=== PATIENT | male | born 1990 | race Caucasian/White ===

== ENCOUNTER 2023-01-10 10:34 | Outpatient (CLI) | payer BC, SELFPAY ==
--- NOTE | 2023-01-10 12:24 | W.ANESCHARGE ---
Anesthesia Charges Start Date/Time Anesthesia Start Date: 01/10/23 Anesthesia Start Time: 11:45 Stop Date/Time Anesthesia Stop Date: 01/10/23 Anesthesia Stop Time: 12:22
--- NOTE | 2023-01-10 12:41 | W.ANESCHARGE ---
Anesthesia Charges Start Date/Time Anesthesia Start Date: 01/10/23 Anesthesia Start Time: 11:45 Stop Date/Time Anesthesia Stop Date: 01/10/23 Anesthesia Stop Time: 12:22
== END 2023-01-10 10:35 | disposition home or self-care (01) ==
LOC: OP CLINIC 10:39
PROVIDERS: PCP Nurse Practitioner Family; Visit Provider Surgery
DX: R10.32 Left lower quadrant pain (principal)
CPT/HCPCS: 45380; 811; 88305; J2704

== ENCOUNTER 2023-09-12 09:30 | Outpatient (CLI) | payer OTHER, SELFPAY | END 2023-09-12 09:31 | disposition home or self-care (01) | LOC: NFLDREF 09-29 23:36 | PROVIDERS: PCP Family Medicine; Referring Provider Family Medicine; Visit Provider Family Medicine | DX: Z13.1 Encounter for screening for diabetes mellitus (principal); Z13.6 Encounter for screening for cardiovascular disorders | CPT/HCPCS: 80061; 82947 ==

== ENCOUNTER 2025-02-25 10:13 | Outpatient (CLI) | payer OTHER, SELFPAY ==
--- NOTE | 2025-02-25 11:44 | P.ANES_ITS ---
Anesthesia Charges Start Date/Time Anesthesia Start Date: 02/25/25 Anesthesia Start Time: 11:12 Stop Date/Time Anesthesia Stop Date: 02/25/25 Anesthesia Stop Time: 11:38 Coding CPT Codes CPT Codes: JOAN LWR INTST NDSC NOS - [id number] ([id number]) P2 - PATIENT W/MILD SYST DISEASE, QK - COUNTERINTELLIGENCE AGENT 2-4 CNCRNT ANES PROC, QX - DIRECTOR OF DIGITAL MARKETING SVC W/ MD MED DIRECTION
--- NOTE | 2025-02-25 11:44 | W.ANESCHARGE ---
Anesthesia Charges Start Date/Time Anesthesia Start Date: 02/25/25 Anesthesia Start Time: 11:12 Stop Date/Time Anesthesia Stop Date: 02/25/25 Anesthesia Stop Time: 11:38 Coding CPT Codes CPT Codes: JOAN LWR INTST NDSC NOS - [id number] ([id number]) P2 - PATIENT W/MILD SYST DISEASE, QK - TROLLEY OPERATOR 2-4 CNCRNT ANES PROC, QX - CORING MACHINE OPERATOR SVC W/ MD MED DIRECTION
--- NOTE | 2025-02-25 12:06 | P.ANES_ITS ---
Anesthesia Charges Start Date/Time Anesthesia Start Date: 02/25/25 Anesthesia Start Time: 11:46 Stop Date/Time Anesthesia Stop Date: 02/25/25 Anesthesia Stop Time: 12:01 Coding CPT Codes CPT Codes: ANES UPR GI NDSC PX NOS - [id number] ([id number]) P1 - NORMAL HEALTHY PATIENT, QK - LANDSCAPE MAINTENANCE INTERNSHIP 2-4 CNCRNT ANES PROC, QX - ETHYLBENZENE CONVERTER OPERATOR SVSakina W/ MED DIRECTION
--- NOTE | 2025-02-25 12:06 | W.ANESCHARGE ---
Anesthesia Charges Start Date/Time Anesthesia Start Date: 02/25/25 Anesthesia Start Time: 11:46 Stop Date/Time Anesthesia Stop Date: 02/25/25 Anesthesia Stop Time: 12:01 Coding CPT Codes CPT Codes: ANES UPR GI NDSC PX NOS - [id number] ([id number]) P1 - NORMAL HEALTHY PATIENT, QK - PIE MAKER MACHINE 2-4 CNCRNT ANES PROC, QX - EVENT COORDINATOR MARKETING AND SALES SVSakina W/ MED DIRECTION
--- NOTE | 2025-02-25 12:38 | P.ANES_ITS ---
Anesthesia Charges Start Date/Time Anesthesia Start Date: 02/25/25 Anesthesia Start Time: 11:46 Stop Date/Time Anesthesia Stop Date: 02/25/25 Anesthesia Stop Time: 12:01 Coding CPT Codes CPT Codes: ANES UPR GI NDSC PX NOS - [id number] ([id number]) P1 - NORMAL HEALTHY PATIENT, QX - NEWSPAPER PHOTO EDITOR MAAME W/ MED DIRECTION, QK - FAST FOOD SUPERVISOR 2-4 CNCRNT ANES PROC
--- NOTE | 2025-02-25 12:38 | W.ANESCHARGE ---
Anesthesia Charges Start Date/Time Anesthesia Start Date: 02/25/25 Anesthesia Start Time: 11:46 Stop Date/Time Anesthesia Stop Date: 02/25/25 Anesthesia Stop Time: 12:01 Coding CPT Codes CPT Codes: ANES UPR GI NDSC PX NOS - [id number] ([id number]) P1 - NORMAL HEALTHY PATIENT, QX - DIRECTOR PRODUCT MANAGEMENT MAAME W/ MED DIRECTION, QK - NUTRITION TECHNICIAN 2-4 CNCRNT ANES PROC
== END 2025-02-25 10:14 | disposition home or self-care (01) ==
PROVIDERS: PCP Family Medicine; Visit Provider Surgery
DX: K21.9 Gastro-esophageal reflux disease without esophagitis (principal); K30 Functional dyspepsia
CPT/HCPCS: 00731; 00811; 43239; 88305; J2704; J3490